=== PATIENT | female | born 1990 | race Caucasian/White ===

== ENCOUNTER → 2018-08-27 | Outpatient (CLI) | payer OTHER ==
[~2018-08-27] MED LIST: ARTHRITIS PAIN325 M1; ASPIRIN 81M81 MG/TA2 PO; CEPHALEXIN500 M1 PO; COLACE 100100 MG/CAP PO; DEXILANT; EPI-PEN1 MG/ML MR; LORTAB 7.5/5001 TAB; MOTRIN 400400 MG/TAB PO; NORCO 325 MG-51 TAB PO; OTC SLEEP AIDE; PEPCID 20MG TAB20 MG PO; PHENERGAN 25 TA25 MG PO; PHENERGAN25 MG/ML; PRENATAL1 TA1 PO; PROZAC 20MG20 MG PO; PROZAC40 MG PO; WELLBUTRIN SR150 M1 PO; ZANTAC; ZOFRAN 4MG T4 MG/TAB PO; ZOFRAN ODT4 MG PO; ZOLOFT; ZOLOFT 100MG100 MG PO
== END ==
LOC: COL.CARD 08-22 10:00
DX: R51 Headache (principal)

== ENCOUNTER 2021-02-10 08:49 | Day surgery (SDC) | payer OTHER ==
[~2021-02-10] VITALS: Ht 157.5 cm; Wt 84.0 kg
[2021-02-10 10:24] VITALS: BP 120/70; PULSE 84; TEMP 97.6
[2021-02-10] MEDS ORDERED: PROTONIX 40MG T40 MG PO (10:31)
[2021-02-10] MEDS ORDERED: BENTYL 20MG20 MG/TAB PO (10:32)
[2021-02-10] MEDS ORDERED: LEVSIN0.125 M1 PO (10:33)
[2021-02-10] MEDS ORDERED: BRINTELLIX5 PO (10:33)
[2021-02-10] MEDS ORDERED: IMITREX50 MG PO (10:34)
[2021-02-10] MEDS ORDERED: WELLBUTRIN XL150 MG PO (10:34)
[2021-02-10 11:25] VITALS: BP 121/54; PULSE 84; TEMP 98
--- NOTE | 2021-02-10 11:25 | NUR ---
PATIENT TRANSPORTED PER CART FROM GI SUITE TO BAY 4 ACCOMPANIED BY JIMY RN. PATIENT SITS ON SIDE OF CART AND RETCHING. NO EMESIS. PATIENT REQUESTS TO USE RESTROOM. ASSIST TO RESTROOM. PATIENT GIVEN ZOFRAN IV PER UZAIR SHRESTHA. ASSISTED BACK TO CHAIR IN ROOM. MONITORS APPLIED. VSS. FAMILY IN ROOM. PATIENT GIVEN WATER.
[2021-02-10 11:40] VITALS: BP 117/73; PULSE 68
--- NOTE | 2021-02-10 11:45 | NUR ---
VSS ON ROOM AIR. PATIENT STATES SHE IS FEELING BETTER. PATIENT GIVEN MUFFIN TO EAT PER REQUEST CONTINUES WITH WATER. NO RETCHING.
--- NOTE | 2021-02-10 12:00 | NUR ---
VSS ON ROOM AIR. PATIENT UP TO RESTROOM. PATIENT RETCHES AND HAS EMESIS. PT BACK TO CHAIR IN BAY 4. PATIENT STATES ALITTLE IMPROVEMENT. WILL CONTINUE TO MONITOR.
[2021-02-10 12:03] VITALS: BP 115/56; PULSE 73
[2021-02-10 12:15] VITALS: BP 123/72; PULSE 82
[2021-02-10 12:19] VITALS: BP 121/54; PULSE 82
--- NOTE | 2021-02-10 12:25 | NUR ---
VSS ON ROOM AIR. PATIENT HAS EMESIS BUT STATES THIS IS HER NORMAL AND REQUESTS TO GO HOME. IV DC'D WITH CATHETER TIP INTACT. PRESSSURE AND BANDAGE APPLIED. PATIENT CHANGES INTO STREET CLOTHES. 1230 PATIENT DISCHARGED PER WHEEL CHAIR TO POV DRIVEN BY .
== END 2021-02-10 12:30 | disposition home or self-care (01) ==
LOC: SDCO 08:49
DX: K21.00 Gastro-esophageal reflux disease with esophagitis, without bleeding (principal); F41.9 Anxiety disorder, unspecified; F32.9 Major depressive disorder, single episode, unspecified; Z86.718 Personal history of other venous thrombosis and embolism; G43.909 Migraine, unspecified, not intractable, without status migrainosus; G47.33 Obstructive sleep apnea (adult) (pediatric); K92.1 Melena; K64.1 Second degree hemorrhoids; Z86.010 Personal history of colon polyps
CPT/HCPCS: J2405; J2704; J7120